=== PATIENT | male | born 1940 | race Caucasian/White ===

== ENCOUNTER → 2016-12-01 | Day surgery (SDC) | payer MEDICARE ==
[~2016-12-01] VITALS: Ht 175.3 cm; Wt 90.7 kg
[~2016-12-01] MED LIST: 0.9% Sodium Chloride 1,000 ML IV SCH; ASPI-973 PO; ATOR20TA PO; AZEL137S11 NS; CETI-343 PO; FLUT16SP NS; IMI100 PO; KEN25CR EXT; MELA1TAB10 PO; MULT-666 PO; OMEP20CA11 PO; Sodium Chloride LOK Flush 10 mL Syringe IV PRN; TAMS0.4C98 PO; TRAZ-115 PO; VIT1CAPS7 PO; fentaNYL-PF 50 mCg/mL 2 mL Inj IVPUSH PRN
[2016-12-01 14:07] VITALS: BP 129/82; PULSE 71; RESP 16; O2SAT 94
[2016-12-01 15:58] VITALS: BP 114/74; PULSE 73; RESP 16; O2SAT 93
[2016-12-01 16:08] VITALS: BP 114/69; PULSE 66; RESP 16; O2SAT 92
[2016-12-01 16:18] VITALS: BP 116/68; PULSE 71; RESP 16; O2SAT 93
[2016-12-01 16:27] VITALS: BP 131/85; PULSE 69; RESP 16; O2SAT 95
--- NOTE | 2016-12-01 19:02 | ENDO ---
[address] [address] ENDOSCOPY PROCEDURE PATIENT: LIV FOSTER : 1940 MR#: [id number] ADMIT: 12/01/2016 JOB ID: [id number] DATE OF SERVICE: 12/01/2016 TYPE OF OPERATION: Colonoscopy. PREOPERATIVE DIAGNOSIS: History of colon polyps. POSTOPERATIVE DIAGNOSIS: Normal colonoscopy. ANESTHESIA: Fentanyl 100 mcg, Versed 5 mg IV administered. COMPLICATIONS: None. BLOOD LOSS: Minimal. DESCRIPTION OF PROCEDURE: After risks and benefits explained to the patient, informed consent was obtained. After anesthesia administered, colonoscope was then inserted from rectum to cecum. Mucosa carefully examined. Prep of the patient was fair. After procedure was done, the scope withdrawn, procedure terminated. FINDINGS: Upon inspection of the anus, no masses, hemorrhoids, ulcers, or fissures that were seen throughout the entire examination. No polyps, masses or lesions seen. Retroflexion was normal. IMPRESSION: Normal colonoscopy. RECOMMENDATIONS: Repeat colonoscopy in five years given history of colon polyps.
== END | disposition home or self-care (01) ==
LOC: END 01:05
PROVIDERS: ATTEND Internal Medicine Gastroenterology
DX: Z12.11 Encounter for screening for malignant neoplasm of colon (principal); Z86.010 Personal history of colon polyps; Z79.82 Long term (current) use of aspirin; Z79.899 Other long term (current) drug therapy; Z87.891 Personal history of nicotine dependence
CPT/HCPCS: 99153; G0105; G0500; J2250; J3010; J7030